=== PATIENT | male | born 1995 | race Hispanic/Latino ===

== ENCOUNTER 2017-08-31 20:17 | Emergency (ER) | payer SELFPAY ==
[2017-08-31] MEDS ORDERED: TETANUS/DIPHTHERIA TOXOID [ADULT] 0.5 ML VIAL IM ONE (20:40)
== END 2017-08-31 21:08 | disposition home or self-care (01) ==
LOC: EDH 20:17
DX: S61.210A Laceration without foreign body of right index finger without damage to nail, initial encounter (principal); W26.0XXA Contact with knife, initial encounter; Y93.G3 Activity, cooking and baking; Y92.89 Other specified places as the place of occurrence of the external cause; Y99.8 Other external cause status
CPT/HCPCS: 12001; 90471; 90714

== ENCOUNTER 2019-10-08 00:46 | Emergency (ER) | payer OTHER ==
[2019-10-08] MEDS ORDERED: IBUPROFEN 400 MG TABLET ONE (01:19)
[2019-10-08] MEDS ORDERED: OCTYL 2-CYANOACRYLATE 1 EACH TP ONE (01:19)
[2019-10-08] MEDS ORDERED: IBUPROFEN 200 MG TAB ONE (01:20)
[2019-10-08] MEDS ORDERED: TETANUS/DIPHTHERIA TOXOID [ADULT] 0.5 ML VIAL IM ONE (12:00)
== END 2019-10-08 01:42 | disposition home or self-care (01) ==
LOC: EDH 00:46
DX: S61.412A Laceration without foreign body of left hand, initial encounter (principal); S61.411A Laceration without foreign body of right hand, initial encounter; W26.8XXA Contact with other sharp object(s), not elsewhere classified, initial encounter; Y93.39 Activity, other involving climbing, rappelling and jumping off; Y92.89 Other specified places as the place of occurrence of the external cause; Y99.8 Other external cause status
CPT/HCPCS: 90471; 90714